=== PATIENT | male | born 1970 | race Asian ===

== ENCOUNTER 2019-05-06 15:58 | Emergency (ER) | payer SELFPAY ==
[~2019-05-06] VITALS: Ht 172.7 cm; Wt 52.2 kg
[2019-05-06 16:10] VITALS: BP 94/51
--- NOTE | 2019-05-06 16:20 | NUR ---
HOMELESS . BIBA C/O GENERALIZED WEAKNESS. BLOOD SUGAR 86 AT THIS TIME. MED HX: DM. PATIENT STATES PAIN OF 0/10 AT THIS TIME. PATIENT POSITIONED FOR COMFORT; HOB ELEVATED; BEDRAILS UP X2; BED DOWN. ER MD MADE AWARE OF PT STATUS.
[2019-05-06 17:12] LABS: BASOPHILS % (AUTO) 0.5 % (0.0-2.0); EOSINOPHILS # (AUTO) 0.1 K/uL (0-0.4); EOSINOPHILS % (AUTO) 1.6 % (0.0-4.0); HEMATOCRIT 41.8 % (36-52); HEMOGLOBIN 13.8 g/dL (12.0-18.0); LYMPHOCYTES # (AUTO) 2.7 K/uL (2.0-11.5); LYMPHOCYTES % (AUTO) 40.3 % (20.5-51.1); MEAN CORPUSCULAR HEMOGLOBIN 31 pg (27-31); MEAN CORPUSCULAR HGB CONC 33 g/dL (33-37); MEAN CORPUSCULAR VOLUME 93.4 fL (80-94); MONOCYTES # (AUTO) 0.4 K/uL (0.8-1.0); NEUTROPHILS # (AUTO) 3.4 K/uL (1.8-7.7); NEUTROPHILS % (AUTO) 51.6 % (42.2-75.2); PLATELET COUNT (AUTO) 287 K/uL (140-450); RED BLOOD CELL COUNT(AUTO) 4.47 MIL/uL (4.20-6.10); RED CELL DISTRIBUTION WIDTH 14.8 % (11.6-13.7); WHITE BLOOD COUNT (AUTO) 6.7 K/uL (4.8-10.8)
[2019-05-06 17:27] LABS: ALBUMIN 3.9 g/dL (3.4-5.0); ANION GAP 10.5 (8-16); CARBON DIOXIDE 28.7 mmol/L (21-32); CREATININE 0.7 mg/dL (0.6-1.3); POTASSIUM 4.2 mmol/L (3.5-5.1); TOTAL BILIRUBIN 0.5 mg/dL (0.0-1.0)
--- NOTE | 2019-05-06 19:04 | NUR ---
Pt report given to MARLYS GRIER. Transfer of care at this time.
--- NOTE | 2019-05-06 19:08 | NUR ---
RECEIVED REPORT FROM [facility].
--- NOTE | 2019-05-06 20:15 | NUR ---
PT IS SLEEPING BUT EASILY AROUSED. PT HAS NO PAIN AT THIS TIME. VSS.
[2019-05-06 21:07] VITALS: BP 110/60
--- NOTE | 2019-05-06 21:08 | NUR ---
Patient discharged with v/s stable. Written and verbal after care instructions given and explained. Patient verbalized understanding. Ambulatory with steady gait. Pt did not have shoes. Called security to have pt dc'd with shoes. All questions addressed prior to discharge. Advised to follow up with PMD.
== END 2019-05-06 21:08 | disposition home or self-care (01) ==
LOC: MED 15:58
DX: R53.1 Weakness (principal); F03.90 Unspecified dementia, unspecified severity, without behavioral disturbance, psychotic disturbance, mood disturbance, and anxiety
CPT/HCPCS: 36415; 80053; 85025; 99283